=== PATIENT | male | born 1995 | race Asian ===

== ENCOUNTER 2018-09-28 17:34 | Emergency (ER) | payer OTHER ==
[~2018-09-28] VITALS: Ht 170.2 cm; Wt 84.1 kg
[2018-09-28 17:38] VITALS: BP 136/95; TEMP 97.2
[2018-09-28] MEDS ORDERED: FLEXERIL 1010 MG/TAB PO (18:54)
[2018-09-28 19:07] VITALS: PULSE 65
== END 2018-09-28 19:08 | disposition home or self-care (01) ==
LOC: COL.ER 17:34
DX: S16.1XXA Strain of muscle, fascia and tendon at neck level, initial encounter (principal); V43.52XA Car driver injured in collision with other type car in traffic accident, initial encounter
CPT/HCPCS: J1885